=== PATIENT | female | born 1955 | race Caucasian/White ===

== ENCOUNTER 2017-07-14 07:06 | Emergency (ER) | payer MEDICAID ==
[~2017-07-14] VITALS: Ht 172.7 cm; Wt 54.0 kg
[2017-07-14 07:06] VITALS: BP_SYST 156
[2017-07-14] MEDS ORDERED: methylPREDNISolone SOD SUCC/PF 62.5 MG/ML VIAL IM ONE (07:45)
[2017-07-14] MEDS ORDERED: DIPHENHYDRAMINE HCL 25 MG CAPSULE PO ONE (07:45)
[2017-07-14] MEDS ORDERED: FAMOTIDINE 20 MG TABLET PO ONE (07:45)
[2017-07-14] MEDS ORDERED: IPRATROPIUM/ALBUTEROL SULFATE 3 ML AMPUL.NEB INH ONE (07:45)
[2017-07-14] MEDS ORDERED: LORazepam 1 MG TABLET PO ONE (08:45)
[2017-07-14 09:15] VITALS: BP_SYST 140
== END 2017-07-14 09:15 | disposition home or self-care (01) ==
LOC: SED 07:06
DX: T78.49XA Other allergy, initial encounter (principal); F41.9 Anxiety disorder, unspecified; J30.2 Other seasonal allergic rhinitis; Z88.6 Allergy status to analgesic agent; X58.XXXA Exposure to other specified factors, initial encounter
CPT/HCPCS: 71010; 94640; 96372; 99284; J2930; Q0163

== ENCOUNTER 2022-10-04 12:03 | Emergency (ER) | payer SELFPAY ==
[~2022-10-04] VITALS: Ht 172.7 cm; Wt 89.8 kg
[2022-10-04 12:09] VITALS: BP_SYST 125
--- NOTE | 2022-10-04 12:15 | NUR ---
Patient triaged and placed in waiting room. VSS and patient appears in no acute distress at this time. Accompanied by SELF, awaiting available bed, and MD notified of need for MSE.
--- NOTE | 2022-10-04 12:40 | NUR ---
PT STATES THAT SHE HAD A MECHANICAL FALL THIS AM AT 0500 WHILE AT WORK, STATES SHE WENT TO URGENT CARE AND GOT STITCHES. URGENT CARE MD TOLD HER TO COME TO ER FOR A HEAD CT SINCE SHE HAD A HEAD INJURY AND IS ON ELIQUIS. PT IS ALERT AND ORIENTED. STATES HEADACHE 5/10
--- NOTE | 2022-10-04 14:31 | NUR ---
DR SMITH OUT TO TRIAGE ROOM TO EVALUATE PT.
--- NOTE | 2022-10-04 14:40 | NUR ---
Patient given written and verbal discharge instructions and verbalizes understanding. ER MD discussed with patient the results and treatment provided. Patient in stable condition. ID arm band removed. Rx of NONE given. Patient educated on pain management and to follow up with PMD. Pain Scale 0/10. Opportunity for questions provided and answered. Medication side effect fact sheet provided.
== END 2022-10-04 14:40 | disposition home or self-care (01) ==
LOC: SED 12:03
DX: S09.90XA Unspecified injury of head, initial encounter (principal); Z88.6 Allergy status to analgesic agent; Z79.899 Other long term (current) drug therapy; X11.0XXA Contact with hot water in bath or tub, initial encounter; Y93.89 Activity, other specified; Y92.89 Other specified places as the place of occurrence of the external cause; Y99.8 Other external cause status
CPT/HCPCS: 70450-TC; 76376; 99284

== ENCOUNTER 2022-12-04 05:30 | Day surgery (SDC) | payer OTHER ==
[~2022-12-04] VITALS: Ht 172.7 cm; Wt 90.7 kg
[2022-12-04] MEDS ORDERED: CEFAZOLIN SOD 2 GM in D5W 50 ML IV ONE (07:00)
[2022-12-04] MEDS ORDERED: ACETAMINOPHEN I.V. 1000 MG 100 ML IV ONE (07:41)
[2022-12-04] MEDS ORDERED: ONDANSETRON HCL 4 MG/2 ML VIAL ONE ×2 (08:12→11:33)
[2022-12-04] MEDS ORDERED: DESFLURANE 15 MIN GAS INH ONE (08:12)
[2022-12-04] MEDS ORDERED: fentaNYL CITRATE/PF 100 MCG/2 ML AMP ONE (08:12)
[2022-12-04] MEDS ORDERED: NS IRRIG SOLN 1000 ML IR ONE (08:12)
[2022-12-04] MEDS ORDERED: LIDOCAINE/EPI MPF 1%1:200000 30 ML VIAL ONE (08:12)
[2022-12-04] MEDS ORDERED: HYDROmorphone 2 MG/ML VIAL ONE (08:12)
[2022-12-04] MEDS ORDERED: LR 1,000 ML IV.SOLN IV ONE (08:12)
[2022-12-04] MEDS ORDERED: SUGAMMADEX SODIUM 200 MG/2 ML VIAL IV ONE (08:12)
[2022-12-04] MEDS ORDERED: SUCCINYLCHOLINE CHLORIDE 20 MG/ML(QUELICIN) ONE (08:12)
[2022-12-04] MEDS ORDERED: ROCURONIUM BROMIDE 10 MG/ML (ZEMURON) ONE (08:12)
[2022-12-04] MEDS ORDERED: DEXAMETHASONE SOD PHOSPHATE 4 MG/ML VIAL ONE (08:12)
[2022-12-04] MEDS ORDERED: BUPIVACAINE /PF 0.5% 30 ML VIAL ONE (08:12)
[2022-12-04] MEDS ORDERED: PROPOFOL 200MG/ 20ML VIAL (DIPRIVAN) IV ONE (08:12)
[2022-12-04] MEDS ORDERED: HYDROmorphone 1 MG/ML INJ. CARTRIDGE IVP PRN ×2 (09:45)
[2022-12-04] MEDS ORDERED: ONDANSETRON HCL 4 MG/2 ML VIAL IVP PRN (09:45)
[2022-12-04] MEDS: HYDROmorphone 1 MG/ML INJ. CARTRIDGE ONE ×2 (10:30→10:40)
[2022-12-04 11:03] VITALS: BP_SYST 152
[2022-12-04] MEDS ORDERED: METOCLOPRAMIDE HCL 10 MG/2 ML VIAL ONE (12:27)
[2022-12-04] MEDS ORDERED: METOCLOPRAMIDE HCL 10 MG/2 ML VIAL IVP ONE (12:30)
== END 2022-12-04 12:50 | disposition home or self-care (01) ==
LOC: SMU 05:30 → SDS 05:30
PROVIDERS: ATTEND Surgery
DX: K80.10 Calculus of gallbladder with chronic cholecystitis without obstruction (principal); I48.91 Unspecified atrial fibrillation; F32.A Depression, unspecified; F41.9 Anxiety disorder, unspecified; M19.90 Unspecified osteoarthritis, unspecified site; Z20.822 Contact with and (suspected) exposure to COVID-19; Z88.6 Allergy status to analgesic agent; Z79.01 Long term (current) use of anticoagulants; Z79.899 Other long term (current) drug therapy
CPT/HCPCS: 87081; 47562; 36415; 88304; 87426; J3490 ×2; J0690; J1100; J2765; J2405; J2704; J0330; J3010; J1170 ×2; J7060; J7120; C1727; J0131